=== PATIENT | female | born 1995 | race American Indian/Alaskan Native ===

== ENCOUNTER 2019-10-13 11:38 | Outpatient (CLI) | payer OTHER | END 2019-10-13 12:48 | disposition home or self-care (01) | LOC: NST 11:38 | DX: Z34.83 Encounter for supervision of other normal pregnancy, third trimester (principal) ==

== ENCOUNTER 2019-10-25 22:13 | Inpatient (IN) | payer OTHER ==
[~2019-10-25] VITALS: Ht 162.6 cm; Wt 2875.0 kg
[2019-10-25] MEDS ORDERED: PRENATAL TABLE1 EACH PO (22:23)
[2019-10-25] MEDS ORDERED: ASPIR 8181 MG PO (22:23)
[2019-10-25] MEDS ORDERED: IRON325 MG PO (22:24)
== END 2019-10-28 11:40 | disposition home or self-care (01) | DRG 807 ==
LOC: LDR 22:13 → OB/GYN 10-26 16:43
PROVIDERS: ADMIT Obstetrics & Gynecology Maternal & Fetal Medicine
PROC: 10E0XZZ Delivery of Products of Conception, External Approach (ICD-10-PCS; principal; 2019-10-26)
PROC: 0HQ9XZZ Repair Perineum Skin, External Approach (ICD-10-PCS; 2019-10-26)
PROC: 3E033VJ Introduction of Other Hormone into Peripheral Vein, Percutaneous Approach (ICD-10-PCS; 2019-10-26)
PROC: 10907ZC Drainage of Amniotic Fluid, Therapeutic from Products of Conception, Via Natural or Artificial Opening (ICD-10-PCS; 2019-10-26)
PROC: 4A1HXCZ Monitoring of Products of Conception, Cardiac Rate, External Approach (ICD-10-PCS; 2019-10-26)
DX: O70.0 First degree perineal laceration during delivery (principal); Z37.2 Twins, both liveborn; Z3A.37 37 weeks gestation of pregnancy; O30.043 Twin pregnancy, dichorionic/diamniotic, third trimester; O99.824 Streptococcus B carrier state complicating childbirth

== ENCOUNTER 2025-04-17 19:49 | Emergency (ER) | payer OTHER ==
[~2025-04-17] VITALS: Ht 162.6 cm; Wt 81.6 kg
[~2025-04-17 19:49] MED LIST: ASPIR 8181 MG PO; IRON325 MG PO; PRENATAL TABLE1 EACH PO
[2025-04-17] MEDS ORDERED: KETOROLAC TROMETHAMINE 30 MG VIAL IM ONE (21:45)
[2025-04-17] MEDS ORDERED: DEXAMETHASONE SODIUM PHOSPHATE 4 MG/ML VIAL IM ONE (21:45)
== END 2025-04-17 21:55 | disposition home or self-care (01) ==
LOC: ER 19:49
DX: H66.91 Otitis media, unspecified, right ear (principal); Z88.0 Allergy status to penicillin